=== PATIENT | female | born 1955 | race Caucasian/White ===

== ENCOUNTER 2016-11-09 07:32 | Emergency (ER) | payer MEDICAID, OTHER ==
[2016-11-09 07:40] VITALS: BP 145/73; PULSE 74; RESP 20; TEMP 98.2
--- NOTE | 2016-11-09 08:34 | ED ---
General Adult HPI - General Chief complaint: Needlestick/Exposure Stated complaint: NEEDLE STICK Time Seen by Provider: 11/09/16 08:17 Source: patient, RN notes reviewed Mode of arrival: ambulatory Limitations: no limitations - History of Present Illness Initial comments: Kimberly is a 61-year-old female who presents emergency room today with a chief complaint possible needle stick. She does work as a nurse up on the preop floor. States she was trying to pull up the cover for the insulin needle was accidentally grazed the left index finger. She states it scratched through the colon. No bleeding. States to clean the wound. States she was unsure if it penetrated. Denies any other complaints or symptoms. Patient denies any recent fever, chills, shortness of breath, chest pain, back pain, abdominal pain, nausea or vomiting, numbness or tingling, dysuria or hematuria, constipation or diarrhea, headaches or visual changes, or any other complaints. - Related Data Home Medications Medication Instructions Recorded Confirmed Omeprazole [PriLOSEC] 20 mg PO DAILY 02/10/14 11/09/16 Calcium Chew 1 tab PO BID 04/02/16 11/09/16 ALPRAZolam [Alprazolam] 0.125 mg PO DAILY PRN 11/09/16 11/09/16 Hyoscyamine Sulfate [Levsin] 0.125 mg PO DAILY PRN 11/09/16 11/09/16 Allergies Allergy/AdvReac Type Severity Reaction Status Date / Time No Known Allergies Allergy Verified 11/09/16 07:40 Review of Systems ROS Statement: Those systems with pertinent positive or pertinent negative responses have been documented in the HPI. ROS Other: All systems not noted in ROS Statement are negative. Past Medical History Past Medical History: GERD/Reflux, Mitral Valve Prolapse (MVP), Musculoskeletal Disorder Additional Past Medical History / Comment(s): SOMETIMES SPASMS IN ABD. OFF & ON- DR. THINKS COULD BE STRESS RELATED. NUMBNESS IN LEFT LEG DEPENDING ON ACTIVITY History of Any Multi-Drug Resistant Organisms: None Reported Past Surgical History: Section, Cholecystectomy, Tonsillectomy, Uterine Ablation Additional Past Surgical History / Comment(s): HX LOW BACK PAIN-PAIN CLINIC INJECTIONS WITH LEFT HIP/LEG PAIN- LAST INJECTION 02/16/14 Past Anesthesia/Blood Transfusion Reactions: Motion Sickness Additional Past Anesthesia/Blood Transfusion Reaction / Comment(s): PT STATES SENSITIVE TO MEDICATIONS IN ANESTHESIA Past Psychological History: No Psychological Hx Reported Smoking Status: Never smoker Past Alcohol Use History: Occasional Additional Past Alcohol Use History / Comment(s): BEER OR WINE 4 X A WEEK Past Drug Use History: None Reported General Exam - General Exam Comments Initial Comments: General: The patient is awake and alert, in no distress, and does not appear acutely ill. Eye: Pupils are equal, round and reactive to light, extra-ocular movements are intact. No nystagmus. There is normal conjunctiva bilaterally. No signs of icterus. Ears, nose, mouth and throat: There are moist mucous membranes and no oral lesions. Neck: The neck is supple, there is no tenderness or JVD. Cardiovascular: There is a regular rate and rhythm. No murmur, rub or gallop is appreciated. Respiratory: Lungs are clear to auscultation, respirations are non-labored, breath sounds are equal. No wheezes, stridor, rales, or rhonchi. Musculoskeletal: Normal ROM, no tenderness. Strength 5/5. Sensation intact. Pulses equal bilaterally 2+. Neurological: A&O x 3. CN II-XII intact, There are no obvious motor or sensory deficits. Coordination appears grossly intact. Speech is normal. Skin: Skin is warm and dry and no rashes or lesions are noted. Psychiatric: Cooperative, appropriate mood & affect, normal judgment. Limitations: no limitations Course Vital Signs 11/09/16 07:33 Temperature 98.2 F Pulse Rate 74 Respiratory 20 Rate Blood Pressure 145/73 O2 Sat by Pulse 97 Oximetry Medical Decision Making - Medical Decision Making Rapid HIV testing done on source patient negative. The results were updated and told to the patient. Patient advised follow-up with employee health. Disposition Clinical Impression: Needle stick injury Disposition: HOME SELF-CARE Condition: Good Referrals: Bruno Ohara MD [Primary Care Provider] - 1-2 days Time of Disposition: 09:34
== END 2016-11-09 08:38 | disposition home or self-care (01) ==
LOC: EC 07:32
DX: S69.92XA Unspecified injury of left wrist, hand and finger(s), initial encounter (principal); K21.9 Gastro-esophageal reflux disease without esophagitis; Z79.899 Other long term (current) drug therapy; W46.0XXA Contact with hypodermic needle, initial encounter; Y92.69 Other specified industrial and construction area as the place of occurrence of the external cause; Y99.0 Civilian activity done for income or pay
CPT/HCPCS: 99283

== ENCOUNTER → 2016-11-21 | Outpatient (CLI) | payer MEDICAID ==
[2016-11-21 08:51] LABS: CHCM 32.7; HCT 52.9 % (34.0-46.0); HDW 2.44; HGB 17.3 gm/dL (11.4-16.0); MCH 31.1 pg (25.0-35.0); MCHC 32.6 g/dL (31.0-37.0); MCV 95.3 fL (80.0-100.0); Mean Platelet Volume 7.8; RBC 5.55 m/uL (3.80-5.40); RDW 13.2 % (11.5-15.5); WBC 5.1 k/uL (3.8-10.6)
[2016-11-21 09:28] LABS: Cholesterol 216 mg/dL (<200); HDL Cholesterol 100 mg/dL (40-60); Triglycerides 87 mg/dL (<150)
== END | disposition home or self-care (01) ==
LOC: LABWHC1 08:28
PROVIDERS: ATTEND Obstetrics & Gynecology
DX: E78.4 Other hyperlipidemia (principal)
CPT/HCPCS: 36415; 80061; 85027

== ENCOUNTER → 2016-11-22 | Outpatient (CLI) | payer MEDICAID ==
--- NOTE | 2016-11-26 12:51 | MM ---
Reason for exam: screening (asymptomatic). Last mammogram was performed 1 year and 8 months ago. History: Patient is postmenopausal. Family history of breast cancer in aunt at age 80, breast cancer in sister at age 52, and breast cancer in aunt at age 60. Physical Findings: A clinical breast exam by your physician is recommended on an annual basis and results should be correlated with mammographic findings. MG 3D Screening Mammo W/Cad Bilateral CC and MLO view(s) were taken. Prior study comparison: March 28, 2015, bilateral MG screening mammo w CAD. January 21, 2014, bilateral MG screening mammo w CAD. The breast tissue is heterogeneously dense. This may lower the sensitivity of mammography. There is no discrete abnormality. No significant changes when compared with prior studies. ASSESSMENT: Negative, BI-RAD 1 RECOMMENDATION: Routine screening mammogram of both breasts in 1 year.
== END | disposition home or self-care (01) ==
LOC: RADMAMWWP 14:57
PROVIDERS: ATTEND Obstetrics & Gynecology
DX: Z12.31 Encounter for screening mammogram for malignant neoplasm of breast (principal); Z80.3 Family history of malignant neoplasm of breast
CPT/HCPCS: 77063; G0202

== ENCOUNTER → 2017-02-28 | Outpatient (CLI) | payer MEDICAID ==
[2017-02-28 09:02] LABS: CH 30.6; CHCM 33.2; HCT 46.8 % (34.0-46.0); HDW 2.56; HGB 16.2 gm/dL (11.4-16.0); MCH 32.1 pg (25.0-35.0); MCHC 34.6 g/dL (31.0-37.0); MCV 92.7 fL (80.0-100.0); Mean Platelet Volume 6.8; RBC 5.05 m/uL (3.80-5.40); RDW 12.8 % (11.5-15.5); WBC 5.1 k/uL (3.8-10.6)
[2017-02-28 10:33] LABS: ALT 30 U/L (9-52); AST 29 U/L (14-36); Alkaline Phosphatase 83 U/L (38-126); Anion Gap 9 mmol/L; Blood Urea Nitrogen 19 mg/dL (7-17); Calcium 10.1 mg/dL (8.4-10.2); Carbon Dioxide 31 mmol/L (22-30); Chloride 104 mmol/L (98-107); Glucose 91 mg/dL (74-99); Iron 125 ug/dL (37-170); Non-African American GFR(MDRD) 56 (>60 ml/min/1.73 sqM); Potassium 4.2 mmol/L (3.5-5.1); Sodium 144 mmol/L (137-145); Total Bilirubin 0.5 mg/dL (0.2-1.3); Total Protein 7.3 g/dL (6.3-8.2)
[2017-02-28 10:43] LABS: % Iron Saturation 37.1 % (20-50); Total Iron Binding Capacity 337 ug/dL (265-497)
== END | disposition home or self-care (01) ==
LOC: LABWHC1 08:28
PROVIDERS: ATTEND Family Medicine
DX: D58.2 Other hemoglobinopathies (principal)
CPT/HCPCS: 36415; 80053; 82728; 83540; 83550; 85027

== ENCOUNTER → 2018-01-29 | Outpatient (CLI) | payer MEDICAID ==
--- NOTE | 2018-01-29 14:15 | ECHOF ---
Referral Reason:I34.1 Mitral valve prolapse. MEASUREMENTS -------- HEIGHT: 162.6 cm WEIGHT: 55.3 kg BP: IVSd: 1.0 cm (0.6 - 1.1) LVIDd: 3.8 cm (3.9 - 5.3) LVPWd: 1.1 cm (0.6 - 1.1) IVSs: 1.0 cm LVIDs: 2.9 cm LVPWs: 1.2 cm LA Diam: 2.6 cm (2.7 - 3.8) LAESV Index (A-L): 27.85 ml/m Ao Diam: 2.8 cm (2.0 - 3.7) AV Cusp: 1.7 cm (1.5 - 2.6) LA Diam: 2.5 cm (2.7 - 3.8) MV EXCURSION: 13.254 mm (> 18.000) MV EF SLOPE: 62 mm/s (70 - 150) EPSS: 0.3 cm MV E Preston: 0.49 m/s MV DecT: 307 ms MV A Preston: 0.78 m/s MV E/A Ratio: 0.63 RAP: 5.00 mmHg RVSP: 25.12 mmHg FINDINGS -------- Sinus rhythm. This was a technically good study. LV size, wall thickness and systolic function are normal, with an EF greater than 55%. The left diego tricular size is normal. The right ventricle is normal in size. The left atrial size is normal. The right atrial size is normal. The aortic valve is trileaflet, and appears structurally normal. No aortic stenosis or regurgitation. The mitral valve leaflets are mildly thickened. Moderate mitral regurgitation is present. Mild pr olapse of the posterior mitral valve leaflet. Mild tricuspid regurgitation present. There is no evidence of pulmonary hypertension. The right v entricular systolic pressure, as measured by Doppler, is 25.12mmHg. There is no pulmonic regurgitation present. The aortic root size is normal. There is no pericardial effusion. CONCLUSIONS -------- 1. Sinus rhythm. 2. This was a technically good study. 3. LV size, wall thickness and systolic function are normal, with an EF greater than 55%. 4. The left ventricular size is normal. 5. The left atrial size is normal. 6. The aortic valve is trileaflet, and appears structurally normal. No aortic stenosis or regurgitati on. 7. Moderate mitral regurgitation is present. 8. Mild prolapse of the posterior mitral valve leaflet. 9. Mild tricuspid regurgitation present. 10. There is no evidence of pulmonary hypertension. 11. There is no pulmonic regurgitation present. 12. The aortic root size is normal. 13. There is no pericardial effusion. TRANSIT SPECIALIST: Amanda Nichols RDCS
== END | disposition home or self-care (01) ==
LOC: RADECHMAIN 08:32
PROVIDERS: ATTEND Internal Medicine Interventional Cardiology
DX: I08.1 Rheumatic disorders of both mitral and tricuspid valves (principal)
CPT/HCPCS: 93306

== ENCOUNTER → 2018-01-29 | Outpatient (CLI) | payer MEDICAID ==
--- NOTE | 2018-01-29 11:29 | BD ---
EXAMINATION TYPE: Axial Bone Density DATE OF EXAM: 01/29/2018 COMPARISON: 03/28/2015 CLINICAL HISTORY: M89.9 disorder Height: 64.5 IN Weight: 125 LBS FRAX RISK QUESTIONS: Family History (Parent hip fracture): YES MOTHER RISK FACTORS HISTORY OF: Family History of Osteoporosis: YES MOTHER Active: YES Postmenopausal woman: AGE 48 MEDICATIONS: Additional Medications: VITAMIN D, OMEPRAZOLE, BENEDRYL, EXAM MEASUREMENTS: Bone mineral densitometry was performed using the [employer] system System. Bone mineral density as measured about the Lumbar spine is: ----- L1-L4(G/cm2): 1.055 T Score Values are as follows: ----- L2: -1.1 ----- L3: -0.8 ----- L4: -0.8 ----- L1-L4: -1.0 Bone mineral density has: Decreased -2.4% since study of: 03/28/2015 Bone mineral density about the R hip (g/cm2): 0.821 Bone mineral density about the L hip (g/cm2): 0.807 T Score values are as follows: -----R Neck: -1.6 -----L Neck: -1.7 -----R Total: -1.7 -----L Total: -1.8 Bone mineral density has: Increased 1.0% since study of: 03/28/2015 IMPRESSION: Osteopenia with increased fracture risk. NOTE: T-SCORE=SD OF THE YOUNG ADULT MEAN.
--- NOTE | 2018-01-30 13:54 | MM ---
Reason for exam: screening (asymptomatic). Last mammogram was performed 1 year and 2 months ago. History: Patient is postmenopausal. Family history of breast cancer in aunt at age 80, breast cancer in sister at age 52, and breast cancer in aunt at age 60. Physical Findings: A clinical breast exam by your physician is recommended on an annual basis and results should be correlated with mammographic findings. MG 3D Screening Mammo W/Cad Bilateral CC and MLO view(s) were taken. Prior study comparison: November 22, 2016, bilateral MG 3d screening mammo w/cad. March 28, 2015, bilateral MG screening mammo w CAD. The breast tissue is heterogeneously dense. This may lower the sensitivity of mammography. Stable benign calcifications. There is no discrete abnormality. No significant changes when compared with prior studies. ASSESSMENT: Benign, BI-RAD 2 RECOMMENDATION: Routine screening mammogram of both breasts in 1 year.
== END | disposition home or self-care (01) ==
LOC: RADMAMWWP 07:21
PROVIDERS: ATTEND Obstetrics & Gynecology
DX: Z12.31 Encounter for screening mammogram for malignant neoplasm of breast (principal); Z13.820 Encounter for screening for osteoporosis; M85.80 Other specified disorders of bone density and structure, unspecified site
CPT/HCPCS: 77063; 77067; 77080

== ENCOUNTER → 2018-04-29 | Outpatient (CLI) | payer MEDICAID ==
[2018-04-29 16:17] LABS: HCT 46.9 % (34.0-46.0); HGB 14.9 gm/dL (11.4-16.0); MCH 30.2 pg (25.0-35.0); MCHC 31.8 g/dL (31.0-37.0); MCV 94.9 fL (80.0-100.0); Mean Platelet Volume 7.2; Platelet Count 258 k/uL (150-450); RBC 4.94 m/uL (3.80-5.40); RDW 13.2 % (11.5-15.5); WBC 6.1 k/uL (3.8-10.6)
[2018-04-29 16:30] LABS: ALT 30 U/L (9-52); AST 28 U/L (14-36); Albumin 4.2 g/dL (3.5-5.0); Alkaline Phosphatase 74 U/L (38-126); Anion Gap 5 mmol/L; Blood Urea Nitrogen 23 mg/dL (7-17); Calcium 9.3 mg/dL (8.4-10.2); Carbon Dioxide 30 mmol/L (22-30); Chloride 105 mmol/L (98-107); Glucose 84 mg/dL (74-99); Potassium 4.3 mmol/L (3.5-5.1); Sodium 140 mmol/L (137-145); Total Bilirubin 0.3 mg/dL (0.2-1.3); Total Protein 6.7 g/dL (6.3-8.2)
== END | disposition home or self-care (01) ==
LOC: LABWHC1 15:50
PROVIDERS: ATTEND Family Medicine
DX: D58.2 Other hemoglobinopathies (principal)
CPT/HCPCS: 36415; 80053; 85027

== ENCOUNTER → 2019-01-22 | Outpatient (CLI) | payer MEDICAID ==
[2019-01-22 08:42] LABS: HCT 50.2 % (34.0-46.0); MCH 29.9 pg (25.0-35.0); MCHC 31.9 g/dL (31.0-37.0); MCV 93.9 fL (80.0-100.0); Mean Platelet Volume 7.5; Platelet Count 302 k/uL (150-450); RBC 5.34 m/uL (3.80-5.40); RDW 14.5 % (11.5-15.5); WBC 7.4 k/uL (3.8-10.6)
[2019-01-22 08:54] LABS: Appearance,Urine Clear (Clear); Bilirubin,Urine Negative (Negative); Blood,Urine Small (Negative); Color,Urine Yellow; Glucose,Urine (UA) Negative (Negative); Ketones,Urine Negative (Negative); Leukocyte Esterase,Urine Moderate (Negative); Mucus,Urine Rare /hpf; Nitrite,Urine Negative (Negative); PH, Urine 5.5 (5.0-8.0); Protein,Urine Negative (Negative); RBC,Urine 2 /hpf (0-5); Specific Gravity,Urine 1.025 (1.001-1.035); Squamous Epithelial Cell,Urine 1 /hpf (0-4); Urobilinogen,Urine <2.0 mg/dL (<2.0); WBC,Urine <1 /hpf (0-5)
[2019-01-22 16:27] LABS: Albumin 4.4 g/dL (3.80-4.90); Albumin/Globulin Ratio 2.32 (1.60-3.17); Anion Gap 8.2 mmol/L (4.00-12.00); Calcium 9.6 mg/dL (8.7-10.3); Carbon Dioxide 27.8 mmol/L (21.6-31.8); Globulin 1.9 g/dL (1.6-3.3); LDL Cholesterol,Calculated 125.8 mg/dL (0.0-131.0); Potassium 4.6 mmol/L (3.5-5.5); Total Bilirubin 0.7 mg/dL (0.2-1.2); Total Protein 6.3 g/dL (6.2-8.2); VLDL Calculation 17.2 mg/dL (5.00-40.00)
== END | disposition home or self-care (01) ==
LOC: LABWHC1 08:23
PROVIDERS: ATTEND Family Medicine
DX: Z00.00 Encounter for general adult medical examination without abnormal findings (principal); Z13.9 Encounter for screening, unspecified
CPT/HCPCS: 36415; 80053; 80061; 81001; 85027; 86803

== ENCOUNTER → 2019-04-17 | Outpatient (CLI) | payer MEDICAID ==
--- NOTE | 2019-04-21 10:50 | MM ---
Reason for exam: screening (asymptomatic). Last mammogram was performed 1 year and 3 months ago. History: Patient is postmenopausal. Family history of breast cancer in aunt at age 80, breast cancer in sister at age 52, and breast cancer in aunt at age 60. MG 3D Screening Mammo W/Cad Bilateral CC and MLO view(s) were taken. Prior study comparison: January 29, 2018, bilateral MG 3d screening mammo w/cad. November 22, 2016, bilateral MG 3d screening mammo w/cad. The breast tissue is heterogeneously dense. This may lower the sensitivity of mammography. No significant new finding when compared with prior studies. ASSESSMENT: Benign, BI-RAD 2 RECOMMENDATION: Routine screening mammogram of both breasts in 1 year.
== END | disposition home or self-care (01) ==
LOC: RADMAMWWP 13:25
PROVIDERS: ATTEND Family Medicine
DX: Z12.31 Encounter for screening mammogram for malignant neoplasm of breast (principal); Z80.3 Family history of malignant neoplasm of breast
CPT/HCPCS: 77063; 77067

== ENCOUNTER → 2019-04-24 | Outpatient (CLI) | payer MEDICAID ==
--- NOTE | 2019-04-24 20:25 | US ---
EXAMINATION TYPE: US transvaginal DATE OF EXAM: 04/24/2019 COMPARISON: NONE CLINICAL HISTORY: 63-year-old female post menopausal bleeding N95.0. Meat Lugger reports that the pat ient has had a prior ablation and history of 3 C-sections. TECHNIQUE: Transvaginal sonographic images of the pelvis were acquired. FINDINGS: EXAM MEASUREMENTS: Uterus: 5.5 x 2.5 x 3.7cm Endometrial Stripe: 0.4 cm Right Ovary: obscured by overlying bowel vs atrophy Left Ovary: obscured by overlying bowel vs atrophy 1. Uterus: Anteverted with heterogeneous myometrium. 2. Endometrium: ill defined, difficult to visualize, likely in keeping with history of prior ablatio n. 3. Right Ovary: obscured by overlying bowel vs atrophy 4. Left Ovary: obscured by overlying bowel vs atrophy 5. Bilateral Adnexa: prominent vascularity 6. Posterior cul-de-sac: wnl IMPRESSION: 1. Endometrial stripe estimated at 4 mm. It is ill-defined and difficult to delineate probably in roberto ping with history of prior ablation. If further assessment of the junctional anatomy is desired, fema le pelvic MRI can be considered. 2. Neither ovary could be visualized. 3. Prominent bilateral adnexal vascularity. This is nonspecific but can be seen in the setting of pel colby congestion syndrome.
== END | disposition home or self-care (01) ==
LOC: RADUSWWP 14:54
PROVIDERS: ATTEND Obstetrics & Gynecology
DX: N94.89 Other specified conditions associated with female genital organs and menstrual cycle (principal)
CPT/HCPCS: 76830

== ENCOUNTER → 2020-09-13 | Outpatient (CLI) | payer BC ==
[2020-09-13 10:14] LABS: HCT 49.5 % (34.0-46.0); HGB 16.9 gm/dL (11.4-16.0); MCH 31.5 pg (25.0-35.0); MCHC 34.1 g/dL (31.0-37.0); MCV 92.3 fL (80.0-100.0); Mean Platelet Volume 7.1; Platelet Count 283 k/uL (150-450); RBC 5.36 m/uL (3.80-5.40); RDW 12.5 % (11.5-15.5); WBC 4.4 k/uL (3.8-10.6)
[2020-09-13 14:49] LABS: African American GFR (CKD) 60.6 (60.0-200.0); Albumin 4.5 g/dL (3.80-4.90); Albumin/Globulin Ratio 2.25 (1.60-3.17); Anion Gap 7.9 mmol/L (4.00-12.00); BUN/Creat Ratio 19.09 Ratio (12.00-20.00); Calcium 9.8 mg/dL (8.7-10.3); Carbon Dioxide 28.1 mmol/L (21.6-31.8); Chol/HDL Ratio 2.73; Non-African American GFR(CKD) 52.3 (60.0-200.0); Potassium 4.7 mmol/L (3.5-5.5); Total Bilirubin 0.7 mg/dL (0.2-1.2); Total Protein 6.5 g/dL (6.2-8.2)
== END | disposition home or self-care (01) ==
LOC: LABWHC1 09:11
PROVIDERS: ATTEND Family Medicine
DX: Z00.01 Encounter for general adult medical examination with abnormal findings (principal)
CPT/HCPCS: 36415; 80053; 80061; 85027

== ENCOUNTER → 2020-10-25 | Outpatient (CLI) | payer MEDICARE ==
--- NOTE | 2020-10-25 17:24 | US ---
EXAMINATION TYPE: US renal artery duplex complet DATE OF EXAM: 10/25/2020 COMPARISON: NONE CLINICAL HISTORY: I10 Hypertension. Pt states recent increase in blood pressure MEASUREMENTS: RENAL SIZE: Rt Kidney: 9.2 x 3.7 x 4.1 cm Lt Kidney: 10.2 x 4.6 x 4.4 cm RESISTANCE INDEX Right: 0.6 Left: 0.7 RA/AO RATIO (< 3.5 ) Right: 3.3 Left: 1.6 RA VELOCITY ( < 180 cm/s) Right: 293.4 Left: 140.9 Elevated velocities within right renal artery Two hyperechoic lesions within right liver 1)= 2.1 x 2.1 cm/ 2)=2.8 x 2.1 cm . These could be heman giomas. This could be further evaluated with CT with contrast. IMPRESSION: 1. Elevated right renal artery velocity. Some distal arterial stenosis may be present. 2. Incidental note made of suspected hemangioma within the liver. Additional workup with contrast CT abdomen is recommended.
== END | disposition home or self-care (01) ==
LOC: RADUSWWP 08:03
PROVIDERS: ATTEND Family Medicine
DX: I77.89 Other specified disorders of arteries and arterioles (principal); I10 Essential (primary) hypertension
CPT/HCPCS: 93975

== ENCOUNTER → 2020-11-04 | Outpatient (CLI) | payer MEDICARE ==
[2020-11-04 08:16] LABS: Basophils # (A) 0.1 k/uL (0-0.2); Basophils % (A) 2 %; Eosinophils # (A) 0.2 k/uL (0-0.7); Eosinophils % (A) 4 %; HCT 50.3 % (34.0-46.0); Lymphocytes % (A) 38 %; MCH 31.5 pg (25.0-35.0); MCHC 33.8 g/dL (31.0-37.0); Mean Platelet Volume 7.3; Monocytes # (A) 0.3 k/uL (0-1.0); Monocytes % (A) 5 %; Neutrophils # (A) 2.6 k/uL (1.3-7.7); Neutrophils % (A) 50 %; Platelet Count 301 k/uL (150-450); RBC 5.41 m/uL (3.80-5.40); RDW 12.9 % (11.5-15.5); WBC 5.2 k/uL (3.8-10.6)
[2020-11-04 08:28] LABS: Albumin 4.4 g/dL (3.5-5.0); Calcium 9.6 mg/dL (8.4-10.2); Potassium 4.4 mmol/L (3.5-5.1); Total Bilirubin 0.5 mg/dL (0.2-1.3); Total Protein 7.2 g/dL (6.3-8.2)
--- NOTE | 2020-11-04 09:09 | CT ---
EXAMINATION TYPE: CT abdomen wo/w con DATE OF EXAM: 11/04/2020 HISTORY: Hemangioma of intra abdominal structures CT DLP: 768mGycm Automated Exposure Control for Dose Reduction was Utilized. CONTRAST: CT scan of the abdomen is performed with oral and without and with IV Contrast, patient injected with 80 mL of Isovue 300. Liver mass protocol. COMPARISON: Ultrasound renal artery duplex October 25, 2020. MRI lumbar spine February 10, 2015 FINDINGS: LUNG BASES: No significant abnormality is appreciated. LIVER/GB: Liver measures upper limits of normal in size. There are multiple subcentimeter hypodense l esions scattered throughout the liver parenchyma superiorly and inferiorly involving right hepatic lo bes. Findings too small to further characterize favor benign etiology. There are 2 larger heterogeneo us slightly hypodense lesions adjacent to each other measuring roughly 2.0 to 2.5 cm in size on nonco ntrast CT axial November 19. The lesions corresponds to the lesions seen on recent ultrasound. There is vague T2 hyperintense lesion partially imaged on axial image 30 in retrospect on 2014 MRI. Dynamic po stcontrast imaging shows more ill definition of these lesions with poor visualization on 10 minute de layed phase images. Suspect there is heterogeneous enhancement with progressive central filling, it i s less prominent than typically visualized. Findings suggest hemangiomas especially given the ultraso und appearance of hyperechoic masses. There is no intrahepatic or extrahepatic biliary dilatation. Ch olecystectomy clips are redemonstrated. PANCREAS: No significant abnormality is seen. SPLEEN: No significant abnormality is seen. ADRENALS: No significant abnormality is seen. KIDNEYS: No significant abnormality is seen. BOWEL: Oral contrast is not reached colonic level. No suspicious small or large bowel dilatation LYMPH NODES: No greater than 1cm abdominal lymph nodes are appreciated. OSSEOUS STRUCTURES: Disc calcification at the L1-L2 level. OTHER: No significant additional abnormality is seen. IMPRESSION: CT findings most likely reflect 2 hemangiomas measuring between 2.0 and 2.5 cm in size. 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
== END | disposition home or self-care (01) ==
LOC: RADCTMAIN 07:38
PROVIDERS: ATTEND Family Medicine
DX: D18.03 Hemangioma of intra-abdominal structures (principal); I10 Essential (primary) hypertension
CPT/HCPCS: 80053; 84443; 85025; 74170; 36415; Q9967

== ENCOUNTER → 2020-11-22 | Outpatient (CLI) | payer MEDICAID, MEDICARE ==
--- NOTE | 2020-11-22 16:47 | BD ---
EXAMINATION TYPE: Axial Bone Density DATE OF EXAM: 11/22/2020 COMPARISON: 01/29/2018 CLINICAL HISTORY: Postmenopausal screening Height: 64 IN Weight: 125 LBS FRAX RISK QUESTIONS: Family History (Parent hip fracture): YES MOTHER RISK FACTORS HISTORY OF: Family History of Osteoporosis: YES MOTHER Active: YES Postmenopausal woman: AGE 48 MEDICATIONS: Additional Medications: NORVASC, OMEPRAZOLE, LEVSIN, BENADRYL, EXAM MEASUREMENTS: Bone mineral densitometry was performed using the [employer] System. Bone mineral density as measured about the Lumbar spine is: ----- L1-L4(G/cm2): 1.056 T Score Values are as follows: ----- L2: -1.2 ----- L3: -0.6 ----- L4: -0.9 ----- L1-L4: -1.0 Bone mineral density has: Increased 0.3% since study of: 01/29/2018 Bone mineral density about the R hip (g/cm2): 0.780 Bone mineral density about the L hip (g/cm2): 0.780 T Score values are as follows: -----R Neck: -1.9 -----L Neck: -1.9 -----R Total: -2.0 -----L Total: -2.1 Bone mineral density has: Decreased -5.0% since study of: 01/29/2018 IMPRESSION: Osteopenia (T Score between -2.5 and -1). There is slightly increased risk of fracture and the patient may be considered for treatment. Re-Screen 2-5 years. NOTE: T-SCORE=SD OF THE YOUNG ADULT MEAN.
== END | disposition home or self-care (01) ==
LOC: RADBDWWP 08:41
PROVIDERS: ATTEND Family Medicine
DX: M85.80 Other specified disorders of bone density and structure, unspecified site (principal)
CPT/HCPCS: 77080

== ENCOUNTER → 2021-01-05 | Outpatient (CLI) | payer MEDICARE ==
--- NOTE | 2021-01-06 13:19 | MM ---
Reason for exam: screening (asymptomatic). Last mammogram was performed 1 year and 9 months ago. History: Patient is postmenopausal. Family history of breast cancer in aunt at age 80, breast cancer in sister at age 52, and breast cancer in aunt at age 60. Physical Findings: A clinical breast exam by your physician is recommended on an annual basis and results should be correlated with mammographic findings. MG 3D Screening Mammo W/Cad Bilateral CC and MLO view(s) were taken. Prior study comparison: April 17, 2019, bilateral MG 3d screening mammo w/cad. January 29, 2018, bilateral MG 3d screening mammo w/cad. There are scattered fibroglandular densities. There is no discrete abnormality. No significant changes when compared with prior studies. ASSESSMENT: Negative, BI-RAD 1 RECOMMENDATION: Routine screening mammogram of both breasts in 1 year.
== END | disposition home or self-care (01) ==
LOC: RADMAMWWP 07:54
PROVIDERS: ATTEND Family Medicine
DX: Z12.31 Encounter for screening mammogram for malignant neoplasm of breast (principal); Z78.0 Asymptomatic menopausal state; Z80.3 Family history of malignant neoplasm of breast
CPT/HCPCS: 77063; 77067

== ENCOUNTER 2021-09-01 06:53 | Day surgery (SDC) | payer MEDICARE ==
[2021-08-30 08:59] VITALS: BMI 20.5
[~2021-09-01 06:53] MED LIST: LACTATED RINGERS 1,000 ML IV SCH
[2021-09-01 07:38] VITALS: TEMP 96.9
[2021-09-01] MEDS ORDERED: ONDANSETRON 4 MG/2 ML VIAL ONE (07:53)
[2021-09-01] MEDS ORDERED: ONDANSETRON 4 MG/2 ML VIAL IVP ONE (07:56)
[2021-09-01] MEDS ORDERED: PROPOFOL 10 MG/ML 20 ML VIAL IV ONE (08:42)
[2021-09-01] MEDS ORDERED: LIDOCAINE 1% INJ 10MG/ML (20 ML MDV) ONE (08:42)
--- NOTE | 2021-09-01 09:18 | P.PCN ---
Date of Procedure: 09/01/21 Procedure(s) Performed: Brief history: Patient is a pleasant 66-year-old white female scheduled for an elective upper endoscopy as well as colonoscopy as a part of evaluation of GERD and screening for colon cancer Procedure performed: Esophagogastroduodenoscopy with snare polypectomy, biopsy and argon plasma coagulation Colonoscopy Preoperative diagnosis: GERD Screening for colon cancer Anesthesia: MAC Procedure: After informed consent was obtained from the patient was brought into the endoscopy unit and IV sedation was administered by anesthesia under continuous monitoring. Initially upper endoscopy was done. The Olympus GF 160 video endoscope was inserted inserted into the mouth and esophagus intubated without any difficulty and was gradually advanced into the stomach and duodenum and carefully examined. The bulb of the duodenum appeared normal. In the second part of the duodenum there was a 1.5 cm flat polyp noted which was partially removed by snare polypectomy followed by multiple biopsies and argon plasma coagulation. The scope was then withdrawn into the stomach adequately insufflated with air and upon careful examination the antrum and body, cardia and fundus appeared normal. The scope was then withdrawn into the esophagus. The GE junction was located at 36 cm to the incisors. Small sliding type hiatal hernia. It appeared regular with no erythema erosions or ulcerations. Rest of the esophagus appeared normal. Patient tolerated the procedure well. At this time the patient continued to remain sedation. Initial digital rectal examination was normal. Olympus CF 160 video colonoscope was then inserted into the rectum and gradually advanced to the cecum without any difficulty. Careful examination was performed as the scope was gradually being withdrawn. The prep was excellent. The cecum, ascending colon, transverse colon, descending colon, sigmoid colon and rectum appeared normal. In the sigmoid diverticulosis. Retroflexion was performed in the rectum and no lesions were noted. Patient tolerated the procedure well. Impression: 1. Upper Endoscopy revealed a 1.5 cm flat duodenal polyp in the second part of the duodenum, status post partial snare polypectomy followed by multiple biopsies and argon plasma coagulation 2. Colonoscopy within normal limits with no evidence of colorectal neoplasia. Moderate sigmoid diverticulosis Recommendations: Findings of this examination were discussed with the patient as well as her family. She was advised to follow with the biopsy results and she'll be seen in office in 2 weeks. If the biopsy reveals adenoma she can have a repeat upper endoscopy. She can have a repeat screening colonoscopy in 10 years.
[2021-09-01 09:49] VITALS: BP 153/68; PULSE 64; RESP 20
== END 2021-09-01 10:18 | disposition home or self-care (01) ==
LOC: ORWHC2ENDO 06:53
PROVIDERS: ATTEND Internal Medicine Gastroenterology
DX: D13.2 Benign neoplasm of duodenum (principal); K21.9 Gastro-esophageal reflux disease without esophagitis; K44.9 Diaphragmatic hernia without obstruction or gangrene; Z12.11 Encounter for screening for malignant neoplasm of colon; K57.30 Diverticulosis of large intestine without perforation or abscess without bleeding; I10 Essential (primary) hypertension; I34.1 Nonrheumatic mitral (valve) prolapse; Z79.899 Other long term (current) drug therapy
CPT/HCPCS: 88305; 43251; J2405; J2001; J2704; G0121; 43239; 43270

== ENCOUNTER → 2022-02-22 | Outpatient (CLI) | payer MEDICARE | END | disposition home or self-care (01) | LOC: RADMAMWWP 09:00 | PROVIDERS: ATTEND Obstetrics & Gynecology | DX: Z12.31 Encounter for screening mammogram for malignant neoplasm of breast (principal) | CPT/HCPCS: 77063; 77067 ==

== ENCOUNTER 2022-03-14 09:06 | Day surgery (SDC) | payer MEDICARE ==
[2022-03-14 10:17] VITALS: RESP 16; TEMP 97.3
[2022-03-14] MEDS ORDERED: ONDANSETRON 4 MG/2 ML VIAL ONE (10:19)
[2022-03-14] MEDS ORDERED: PROPOFOL 10 MG/ML 20 ML VIAL IV ONE (11:28)
[2022-03-14] MEDS ORDERED: LIDOCAINE 2% INJ 20 MG/ML (2 ML VIAL) ONE (11:28)
--- NOTE | 2022-03-14 11:39 | P.PCN ---
Date of Procedure: 03/14/22 Procedure(s) Performed: BRIEF HISTORY: Patient is a 66-year-old, pleasant, white female scheduled for an upper endoscopy as a part of evaluation of GERD and follow-up duodenal polyp that was withdrawn and upper endoscopy unit.. PROCEDURE PERFORMED: Esophagogastroduodenoscopy with biopsy. PREOPERATIVE DIAGNOSIS: Follow-up duodenal polyp. IV sedation per anesthesia. PROCEDURE: After informed consent was obtained, the patient was brought into the endoscopy unit. IV sedation was administered by Anesthesia under continuous monitoring. Initially the Olympus GIF-140 video endoscope was inserted into the mouth. Esophagus intubated without any difficulty. It was gradually advanced into the stomach and duodenum and carefully examined. The bulb of the duodenum appeared normal. In the second part of the duodenum there was a 2-3 mm residual polyp noted which was removed by cold biopsy. The scope at this time was withdrawn to the stomach, adequately insufflated with air, and upon careful examination, mucosa of the antrum, body, cardia and the fundus appeared normal. The scope was then withdrawn into the esophagus. The GE junction was located at 39 cm from the incisors. Small hiatal hernia seen. The esophagus appeared normal. There were no erosions or ulcerations seen and the patient tolerated the procedure well. IMPRESSION: 1. 2 mm residual duodenal polyp status post cold biopsy. 2. Small hiatal hernia.. RECOMMENDATIONS: The findings of this examination were discussed with the p atient as well as a family. She was advised to follow with the biopsy results.. We'll plan a repeat upper endoscopy in 1 year.
[2022-03-14 12:11] VITALS: BP 145/67; PULSE 65
== END 2022-03-14 12:36 | disposition home or self-care (01) ==
LOC: ORWHC2ENDO 09:06
PROVIDERS: ATTEND Internal Medicine Gastroenterology
DX: D13.2 Benign neoplasm of duodenum (principal); K44.9 Diaphragmatic hernia without obstruction or gangrene; K21.9 Gastro-esophageal reflux disease without esophagitis; I10 Essential (primary) hypertension; I34.1 Nonrheumatic mitral (valve) prolapse; Z79.899 Other long term (current) drug therapy; Z80.9 Family history of malignant neoplasm, unspecified
CPT/HCPCS: 88305; 43239; J2405; J2704; J2001

== ENCOUNTER → 2022-09-06 | Outpatient (CLI) | payer MEDICARE ==
[2022-09-06 15:21] LABS: HCT 50.4 % (37.2-46.3); HGB 16.1 g/dL (12.0-15.0); MCH 30.1 pg (27.0-32.0); MCHC 31.9 g/dL (32.0-37.0); MCV 94.2 fL (80.0-97.0); Mean Platelet Volume 10.3 fL (9.5-12.2); NRBC Per 100 WBC 0 /100 WBCS (0.0-0.0); Platelet Count 317 X 10*3/uL (140-440); RBC 5.35 X 10*6/uL (4.10-5.20); RDW 13.2 % (11.5-14.5); WBC 5.65 X 10*3/uL (4.50-10.00)
[2022-09-06 16:05] LABS: ALT 21 U/L (8-44); AST 24 U/L (13-35); African American GFR (CKD) 72.3 (60.0-200.0); Albumin 4.7 g/dL (3.8-4.9); Albumin/Globulin Ratio 2.15 (1.60-3.17); Alkaline Phosphatase 81 U/L (41-126); BUN/Creat Ratio 19.81 Ratio (12.00-20.00); Blood Urea Nitrogen 18.6 mg/dL (9.0-27.0); Calcium 9.8 mg/dL (8.7-10.3); Carbon Dioxide 26.1 mmol/L (20.0-27.5); Chloride 104 mmol/L (96-109); Chol/HDL Ratio 2.45 Ratio; Globulin 2.2 g/dL (1.6-3.3); Glucose 106 mg/dL (70-110); LDL Cholesterol,Calculated 118.9 mg/dL (0.0-131.0); Non-African American GFR(CKD) 62.4 (60.0-200.0); Potassium 4.4 mmol/L (3.5-5.5); Sodium 142 mmol/L (135-145); Total Protein 6.9 g/dL (6.2-8.2)
== END | disposition home or self-care (01) ==
LOC: LABWHC1 08:40
PROVIDERS: ATTEND Family Medicine
DX: Z00.01 Encounter for general adult medical examination with abnormal findings (principal); E78.2 Mixed hyperlipidemia; I12.9 Hypertensive chronic kidney disease with stage 1 through stage 4 chronic kidney disease, or unspecified chronic kidney disease; N18.2 Chronic kidney disease, stage 2 (mild)
CPT/HCPCS: 36415; 80053; 80061; 85027

== ENCOUNTER → 2022-09-21 | Outpatient (CLI) | payer MEDICARE ==
[2022-09-21 18:52] LABS: African American GFR (CKD) 61.8 (60.0-200.0); Anion Gap 13.2 mmol/L (10.00-18.00); BUN/Creat Ratio 14.39 Ratio (12.00-20.00); Blood Urea Nitrogen 15.4 mg/dL (9.0-27.0); Calcium 9.8 mg/dL (8.7-10.3); Carbon Dioxide 27.8 mmol/L (20.0-27.5); Non-African American GFR(CKD) 53.3 (60.0-200.0)
== END | disposition home or self-care (01) ==
LOC: LABWHC1 10:09
PROVIDERS: ATTEND Nurse Practitioner Adult Health
DX: I10 Essential (primary) hypertension (principal)
CPT/HCPCS: 36415; 80048

== ENCOUNTER → 2022-11-26 | Outpatient (CLI) | payer MEDICARE ==
--- NOTE | 2022-11-26 15:35 | BD ---
EXAMINATION TYPE: Axial Bone Density DATE OF EXAM: 11/26/2022 CLINICAL HISTORY: 67 years old Female. ICD-10 CODE: M85.88 DISORDER OF BONE DENSITY Height: 64.25" Weight: 122.4 FRAX RISK QUESTIONS: Alcohol (3 or more units per day): No Family History (Parent hip fracture): Yes, Mother fractured both hips and pelvis Glucocorticoids (More than 3mos): No (Ex: prednisone, prednisolone, methylprednisolone, dexamethasone, and hydrocortisone). History of Fracture in Adulthood: Yes, 5th digit unknown foot Secondary Osteoporosis: 1. Type 1 Diabetes: No 2. Hyperthyroidism: No 3. Menopause before 45: No 4. Malnutrition: No 5. Chronic liver disease: No Rheumatoid Arthritis: No Current Tobacco Use: No RISK FACTORS HISTORY OF: Hip Fracture (Right/Left): No Spine Fracture: No History of Wrist Fracture: No Surgery to Spine/Hip(right/left)/Wrist (right/left): No Family History of Osteoporosis: Yes, Mother Active: Yes Diet low in dairy products/other sources of calcium: Yes Postmenopausal woman: Yes Lost more than 2 inches in height since high school: No Frequent falls: No Poor Health: No Hyperparathyroidism: No Adrenal Insufficiency: No MEDICATIONS: Prednisone or other steroids: No Thyroid Medications: No Osteoporosis Medications: No Additional Medications: Two different blood pressure pills, xanax on occasion, omeprazole, muscle rel axer for stomach, magnesium Additional History: None EXAM MEASUREMENTS: Bone mineral densitometry was performed using the [email or web address] System. Bone mineral density as measured about the Lumbar spine is: ----- L1-L4(G/cm2): 1.084 T Score Values are as follows: ----- L1: -1.5 ----- L2: -1.0 ----- L3: -0.4 ----- L4: -0.6 ----- L1-L4: -0.8 Z Score Values are as follows: ----- L1: 0.5 ----- L2: 1.0 ----- L3: 1.5 ----- L4: 1.4 ----- L1-L4: 1.2 Bone mineral density has: Increased 27% since study of: 11/22/2020 Bone mineral density about the R hip (g/cm2): 0.768 Bone mineral density about the L hip (g/cm2): 0.750 T Score values are as follows: -----R Neck: -1.8 -----L Neck: -1.9 -----R Total: -1.9 -----L Total: -2.0 Z Score values are as follows: -----R Neck: -0.0 -----L Neck: -0.1 -----R Total: -0.3 -----L Total: -0.5 Bone mineral density has: Increased 1.6% since study of: 11/22/2020 FRAX%s: The graph provided illustrates a 16.5% chance for a major osteoporotic fx and a 2.9% chance f or the hips probability for fx in 10 years time. IMPRESSION: Osteopenia (T Score between -2.5 and -1). There is slightly increased risk of fracture and the patient may be considered for treatment. Re-Screen 2-5 years. NOTE: T-SCORE=SD OF THE YOUNG ADULT MEAN.
== END | disposition home or self-care (01) ==
LOC: RADBDWWP 07:55
PROVIDERS: ATTEND Obstetrics & Gynecology
DX: M85.89 Other specified disorders of bone density and structure, multiple sites (principal)
CPT/HCPCS: 77080

== ENCOUNTER → 2023-02-27 | Outpatient (CLI) | payer MEDICARE ==
[2023-02-27 16:09] LABS: ALT 21 U/L (8-44); AST 23 U/L (13-35); Albumin 4.3 d/dL (3.8-4.9); Albumin/Globulin Ratio 2.05 Ratio (1.60-3.17); Alkaline Phosphatase 76 U/L (41-126); Calcium 9.7 mg/dL (8.7-10.3); Chloride 104 mmol/L (96-109); Chol/HDL Ratio 2.48 Ratio; Globulin 2.1 d/dL (1.6-3.3); Glucose 102 mg/dL (70-110); LDL Cholesterol,Calculated 108.9 mg/dL (0.0-131.0); Potassium 4.7 mmol/L (3.5-5.5); Sodium 144 mmol/L (135-145); Total Bilirubin 0.3 mg/dL (0.3-1.2); Total Protein 6.4 d/dL (6.2-8.2); VLDL Calculation 14.74 mg/dL (5.00-40.00)
== END | disposition home or self-care (01) ==
LOC: LABWHC1 07:00
PROVIDERS: ATTEND Internal Medicine Interventional Cardiology
DX: I10 Essential (primary) hypertension (principal); E78.2 Mixed hyperlipidemia
CPT/HCPCS: 36415; 80053; 80061

== ENCOUNTER 2023-03-29 04:48 | Emergency (ER) | payer MEDICARE ==
[2023-03-29 04:59] VITALS: BP 116/54; PULSE 74; RESP 18; TEMP 97
[2023-03-29] MEDS ORDERED: HYDROmorphone 1 MG/ML 1 ML SYRINGE IM STA (05:57)
[2023-03-29] MEDS ORDERED: methylPREDNISolone SOD SUCCI 125 MG/2 ML VIAL IM ONE (05:57)
--- NOTE | 2023-03-29 06:45 | ED ---
Back Pain HPI - General Chief Complaint: Back Pain/Injury Stated Complaint: Left hip pain Time Seen by Provider: 03/29/23 05:00 Source: family Limitations: no limitations - History of Present Illness Initial Comments: 67-year-old female presents to the emergency department reporting back pain. States that she was working in her backyard when she twisted and felt a pop. She has pain in her lower back which is radiating down her left leg. Does have a history of herniated disks. States that she received injections approximately 2 years ago and has not had any issues since. She denies any saddle anesthesia. No bowel or bladder incontinence. No history of cancer. No weakness in her extremities. No other alleviating, precipitating or modifying factors - Related Data Home Medications Medication Instructions Recorded Confirmed Omeprazole [PriLOSEC] 20 mg PO DAILY PRN 02/10/14 03/22/23 Calcium Chew 1 tab PO BID 04/02/16 03/22/23 ALPRAZolam [Alprazolam] 0.25 mg PO DAILY PRN 11/09/16 03/22/23 Hyoscyamine Sulfate [Levsin] 0.125 mg PO DAILY PRN 11/09/16 03/22/23 amLODIPine BESYLATE 5 mg PO QAM 08/30/21 03/22/23 Magnesium 200 mg PO HS 03/14/22 03/22/23 Ibuprofen [Motrin Ib] 600 mg PO DIRECTED PRN 03/22/23 03/22/23 hydroCHLOROthiazide 25 mg PO DAILY 03/22/23 03/22/23 Previous Rx's Medication Instructions Recorded HYDROcodone/APAP 7.5-325MG [Newcomb 1 tab PO Q4HR PRN 3 Days #18 tab 03/29/23 7.5-325] predniSONE [Deltasone] 20 mg PO BID #10 tab 03/29/23 Allergies Allergy/AdvReac Type Severity Reaction Status Date / Time No Known Allergies Allergy Verified 03/29/23 04:59 Review of Systems ROS Statement: Those systems with pertinent positive or pertinent negative responses have been documented in the HPI. ROS Other: All systems not noted in ROS Statement are negative. Past Medical History Past Medical History: GERD/Reflux, Hypertension, Mitral Valve Prolapse (MVP) Additional Past Medical History / Comment(s): SPASMS IN ABD. OFF & ON. Hx. of herniated disc. COVID 08/2021. hx of polyps in esophagus. History of Any Multi-Drug Resistant Organisms: None Reported Past Surgical History: Section, Cholecystectomy, Tonsillectomy, Uterine Ablation Additional Past Surgical History / Comment(s): HX LOW BACK PAIN-PAIN CLINIC INJECTIONS WITH LEFT HIP/LEG PAIN. Vein stripping.. colonoscopy, egd - pre cancerous polyp removed Past Anesthesia/Blood Transfusion Reactions: Postoperative Nausea & Vomiting (PONV) Additional Past Anesthesia/Blood Transfusion Reaction / Comment(s): States is sensitive to anesthesia.. Past Psychological History: Anxiety Smoking Status: Never smoker Past Alcohol Use History: Daily Past Drug Use History: None Reported - Past Family History Mother Family Medical History: No Reported History Sister(s) Family Medical History: Cancer Additional Family Medical History / Comment(s): breast Father Family Medical History: Cancer Brother(s) Family Medical History: Cancer General Exam Limitations: no limitations General appearance: alert, in distress Neck exam: Present: normal inspection. Absent: tenderness, meningismus, lymphadenopathy Respiratory exam: Present: normal lung sounds bilaterally Cardiovascular Exam: Present: regular rate, normal rhythm, normal heart sounds. Absent: systolic murmur, diastolic murmur, rubs, gallop, clicks GI/Abdominal exam: Present: soft, normal bowel sounds. Absent: distended, tenderness, guarding, rebound, rigid Extremities exam: Present: normal inspection, full ROM, normal capillary refill. Absent: tenderness, pedal edema, joint swelling, calf tenderness Back exam: Present: normal inspection, other (Patient has no palpable pain. No step-offs) Neurological exam: Present: alert, oriented X3, CN II-XII intact Skin exam: Present: warm, dry, intact, normal color. Absent: rash Course Vital Signs 03/29/23 04:56 Temperature 97 F L Pulse Rate 74 Respiratory 18 Rate Blood Pressure 116/54 O2 Sat by Pulse 100 Oximetry Medical Decision Making - Medical Decision Making Was pt. sent in by a medical professional or institution (, PA, EXPORT SPECIALIST, urgent care, hospital, or intermediate...) When possible be specific @ -No Did you speak to anyone other than the patient for history (EMS, parent, family, police, friend...)? What history was obtained from this source @ -No Did you review nursing and triage notes (agree or disagree)? Why? @ -I reviewed and agree with nursing and triage notes Were old charts reviewed (outside hosp., previous admission, EMS record, old EKG, old radiological studies, urgent care reports/EKG's, intermediate records)? Report findings @ -No old charts were reviewed Differential Diagnosis (chest pain, altered mental status, abdominal pain women, abdominal pain men, vaginal bleeding, weakness, fever, dyspnea, syncope, headache, dizziness, GI bleed, back pain, seizure, CVA, palpatations, mental health, musculoskeletal)? @ -Differential Back Pain: Strain, zoster, cauda equina syndrome, epidural abscess, vertebral osteom yelitis, discitis, fracture, subluxation, disc herniation, DJD, spinal stenosis, dissection, AAA, pancreatitis, peptic ulcer disease, pyelonephritis, kidney stone, this is not meant to be an all-inclusive list. EKG interpreted by me (3pts min.). @ -Not completed X-rays interpreted by me (1pt min.). @ -None done CT interpreted by me (1pt min.). @ -None done U/S interpreted by me (1pt. min.). @ -None done What testing was considered but not performed or refused? (CT, X-rays, U/S, labs)? Why? @ -X-ray however patient has not had any traumatic injury What meds were considered but not given or refused? Why? @ -None Did you discuss the management of the patient with other professionals (professionals i.e. , PA, EXPORT SPECIALIST, lab, RT, psych nurse, psychotherapist social worker, workers compensation defense attorney, teacher, safety security officer, disease case manager rn)? Give summary @ -No Was smoking cessation discussed for >3mins.? @ -No Was critical care preformed (if so, how long)? @ -No Were there social determinants of health that impacted care today? How? (Homelessness, low income, unemployed, alcoholism, drug addiction, transportation, low edu. Level, literacy, decrease access to med. care, snf, rehab)? @ -No Was there de-escalation of care discussed even if they declined (Discuss DNR or withdrawal of care, Hospice)? DNR status @ -No What co-morbidities impacted this encounter? (DM, HTN, Smoking, COPD, CAD, C ancer, CVA, ARF, Chemo, Hep., AIDS, mental health diagnosis, sleep apnea, morbid obesity)? @ -Herniated lumbar disks Was patient admitted / discharged? Hospital course, mention meds given and route, prescriptions, significant lab abnormalities, going to OR and other pertinent info. @ -Upon arrival patient is placed into room 15. She is visibly uncomfortable. She is given 1 mg of Dilaudid IM and 125 mg of Solu-Medrol. Patient does have remarkable improvement in her symptoms and feels comfortable going home at this time. She will be placed on a course of steroids and pain medications now patient satting. Follow-up with her primary care doctor for further evaluation and return for any new or worsening symptoms. Patient was agreeable to this and she was discharged in stable condition Undiagnosed new problem with uncertain prognosis? @ -No Drug Therapy requiring intensive monitoring for toxicity (Heparin, Nitro, Insulin, Cardizem)? @ -No Were any procedures done? @ -No Diagnosis/symptom? @ -Acute lumbar radiculopathy Acute, or Chronic, or Acute on Chronic? @ -Acute Uncomplicated (without systemic symptoms) or Complicated (systemic symptoms)? @ -Complicated Side effects of treatment? @ -No Exacerbation, Progression, or Severe Exacerbation? @ -No Poses a threat to life or bodily function? How? (Chest pain, USA, VT, pneumonia, PE, COPD, DKA, ARF, appy, cholecystitis, CVA, Diverticulitis, Homicidal, Suicidal, threat to staff... and all critical care pts) @ -No Disposition Clinical Impression: Lumbar radiculopathy Disposition: HOME SELF-CARE Condition: Stable Instructions (If sedation given, give patient instructions): Acute Low Back Pain (ED) Additional Instructions: Please take the pain medications and steroids as directed. Follow up with your doctor. You may need further imaging should your pain continue. Return for any new or worsening symptoms Prescriptions: predniSONE [Deltasone] 20 mg PO BID #10 tab HYDROcodone/APAP 7.5-325MG [[place]comb 7.5-325] 1 tab PO Q4HR PRN 3 Days #18 tab PRN Reason: Pain Is patient prescribed a controlled substance at d/c from ED?: Yes When asked, does pt state using other controlled substances?: No If prescribed controlled substance>3 days was MAPS reviewed?: Prescribed <3 Days If opioid is for acute pain is fill amount 7 days or less?: Yes Referrals: Bruno Ohara MD [Primary Care Provider] - 1-2 days Time of Disposition: 06:45
[2023-03-29] MEDS ORDERED: ONDANSETRON ODT 4 MG TAB PO STA (06:53)
== END 2023-03-29 07:04 | disposition home or self-care (01) ==
LOC: EC 04:48
DX: M54.16 Radiculopathy, lumbar region (principal); K21.9 Gastro-esophageal reflux disease without esophagitis; I10 Essential (primary) hypertension; F41.9 Anxiety disorder, unspecified; Z86.16 Personal history of COVID-19; Z79.899 Other long term (current) drug therapy
CPT/HCPCS: 99283; 96372 ×2; J2930; J1170

== ENCOUNTER 2023-05-15 11:22 | Day surgery (SDC) | payer MEDICARE ==
[2023-05-04 08:46] LABS: Basophils # (A) 0.1 k/uL (0-0.2); Basophils % (A) 1 %; Eosinophils # (A) 0.3 k/uL (0-0.7); Eosinophils % (A) 5 %; HCT 51.2 % (34.0-46.0); HGB 16.6 gm/dL (11.4-16.0); Lymphocytes % (A) 32 %; MCH 30.5 pg (25.0-35.0); MCHC 32.4 g/dL (31.0-37.0); MCV 94.1 fL (80.0-100.0); Mean Platelet Volume 7.3; Monocytes # (A) 0.3 k/uL (0-1.0); Monocytes % (A) 5 %; Neutrophils # (A) 3.4 k/uL (1.3-7.7); Neutrophils % (A) 54 %; Platelet Count 437 k/uL (150-450); RBC 5.44 m/uL (3.80-5.40); RDW 12.3 % (11.5-15.5); WBC 6.3 k/uL (3.8-10.6)
[2023-05-04 09:23] LABS: African American GFR (CKD) 82 (>60 ml/min/1.73 sqM); Anion Gap 6 mmol/L; Blood Urea Nitrogen 18 mg/dL (7-17); Carbon Dioxide 30 mmol/L (22-30); Chloride 100 mmol/L (98-107); Glucose 107 mg/dL (74-99); Non-African American GFR(CKD) 71 (>60 ml/min/1.73 sqM); Potassium 4.2 mmol/L (3.5-5.1); Sodium 136 mmol/L (137-145)
[2023-05-04 09:30] LABS: Partial Thromboplastin Time 29.4 sec (22.0-30.0); Prothrombin Time 10.8 sec (9.0-12.0)
[2023-05-04 10:50] LABS: Appearance,Urine Clear (Clear); Bacteria,Urine Rare /hpf; Bilirubin,Urine Negative (Negative); Blood,Urine Negative (Negative); Color,Urine Colorless; Glucose,Urine (UA) Negative (Negative); Ketones,Urine Negative (Negative); Leukocyte Esterase,Urine Large (Negative); Mucus,Urine Rare /hpf; Nitrite,Urine Negative (Negative); Protein,Urine Negative (Negative); RBC,Urine 1 /hpf (0-5); Specific Gravity,Urine 1.013 (1.001-1.035); Squamous Epithelial Cell,Urine 1 /hpf (0-4); Urobilinogen,Urine <2.0 mg/dL (<2.0); WBC,Urine 99 /hpf (0-5)
[2023-05-10 17:33] VITALS: BMI 20.1
[~2023-05-15 11:22] MED LIST changes: -LACTATED RINGERS 1,000 ML IV SCH; +ceFAZolin 1,000 MG in SODIUM CHLORIDE 0.9% IRRIGATIO 1,000 ML IRRIGATION PRN
[2023-05-15] MEDS ORDERED: LACTATED RINGERS 1,000 ML IV ONE (11:46)
[2023-05-15] MEDS ORDERED: ONDANSETRON 4 MG/2 ML VIAL ONE (12:09)
[2023-05-15] MEDS ORDERED: PROPOFOL 10 MG/ML 20 ML VIAL IV ONE (13:48)
[2023-05-15] MEDS ORDERED: SUCCINYLCHOLINE CHLORIDE 200 MG/10 ML VIAL IV ONE (13:48)
[2023-05-15] MEDS ORDERED: fentaNYL (PF) 50 MCG/ML 2 ML AMP ONE (13:48)
[2023-05-15] MEDS ORDERED: MIDAZOLAM 2 MG/2 ML VIAL ONE (13:48)
[2023-05-15] MEDS ORDERED: LIDOCAINE 2% INJ 20 MG/ML (2 ML VIAL) ONE (13:48)
[2023-05-15] MEDS ORDERED: THROMBIN (BOVINE) 5,000 UNIT VIAL TOPICAL ONE (13:52)
[2023-05-15] MEDS ORDERED: methylPREDNISolone ACETATE 40 MG/ML 1 ML VIAL MISCELLANE ONE (13:52)
[2023-05-15] MEDS ORDERED: GELATIN SPONGE,ABSORB (LARGE) 1 EACH SPONGE TOPICAL ONE (13:52)
[2023-05-15] MEDS ORDERED: LIDOCAINE 0.5%-EPI 1:200,000 50 ML VIAL SQ ONE (13:52)
[2023-05-15] MEDS ORDERED: KETOROLAC 30 MG/ML 1 ML VIAL IVP PRN (15:07)
[2023-05-15] MEDS ORDERED: HYDROmorphone 0.5 MG/0.5 ML SYRINGE IVP PRN (15:07)
[2023-05-15] MEDS ORDERED: CYCLOBENZAPRINE 10 MG TAB PO PRN (15:07)
[2023-05-15] MEDS ORDERED: SENNOSIDES-DOCUSATE SODIUM 1 EACH TAB PO PRN (15:07)
[2023-05-15] MEDS ORDERED: HYDROmorphone 1 MG/ML 1 ML SYRINGE IVP PRN (15:07)
[2023-05-15] MEDS ORDERED: BENZOCAINE/MENTHOL LOZENG 1 EACH LOZENGE MUCOUS MEM PRN (15:07)
[2023-05-15] MEDS ORDERED: traMADol 50 MG TAB PO PRN (15:07)
[2023-05-15] MEDS ORDERED: HYDROcodone/APAP 5-325MG 1 EACH TAB PO PRN (15:07)
--- NOTE | 2023-05-15 15:12 | P.OP ---
Date of Procedure: 05/15/23 Preoperative Diagnosis: Herniated nucleus pulposis L2-3, far lateral, left lower extremity radiculopathy with weakness Postoperative Diagnosis: Same Anesthesia: GETA Pathology: none sent Condition: stable Disposition: PACU Description of Procedure: BRIEF OPERATIVE NOTE Preoperative Diagnosis:Herniated nucleus pulposis L2-3, far lateral, left lower extremity radiculopathy with weakness Postoperative Diagnosis:Herniated nucleus pulposis L2-3, far lateral, left lower extremity radiculopathy with weakness Procedure: Laminectomy and decompression L2-3 with partial medial facetectomy and foraminotomy for decompression Discectomy for decompression L2-3 Surgeon: Dr. Waddell Inspector Motor Vehicles: Aidan Serrato is present throughout the entire the case persistence during positioning, dissection, exposure, visualization, and all crucial elements of the case as well as closure. Anesthesia: General anesthesia per Dr. Stiles Estimated blood loss: Approximately 50 mL Complications: None apparent Components implanted: None Disposition: To recovery room in good stable condition. OPERATIVE INDICATIONS The patient has been having issues in their lower back and lower extremities. Over the past couple months she has been having severe pain at her left lower extremity at her thigh and anteriorly along her thigh. She is having some weakness initially as well. She was found have a disc herniation with extruded fragment the far lateral space at L2-3 which correlated well with her lower extremity symptoms. The patient has been through conservative treatment. She continued have radicular symptoms with numbness tingling in her lower extremity correlating with her imaging findings. We discussed various treatment options including surgery, and the patient wishes to proceed with surgery We discussed the risk, patient's alternatives and benefits of surgery including but not limited to, risk of bleeding risk of infection, risk of need for further surgery, risk of decreased, loss of motion, loss of function, nerve damage, paralysis, heart attack, blindness and . OPERATIVE SUMMARY After discussing all the risks, patient alternatives and benefits at length, the patient elected to proceed with surgical intervention, signed informed consent, and presented for their procedure. The patient was seen and examined in the preoperative holding area and the surgical site was marked. The patient was given antibiotics and brought to the operating room. The patient was sedated and intubated by anesthesia in standard fashion. The patient was positioned on to the operating room table in a prone position on the appropriate frame which was well-padded and well molded. We were careful to pad any bony prominences and pressure points. We were careful to maintain the patient's cervical spine and good neutral alignment and position throughout. The patient was prepped and draped in a normal standard fashion. An appropriate timeout and keystone protocol performed. We were able to proceed with the surgery. Fluoroscopy was utilized to establish the appropriate level. The local wound area was infiltrated with local anesthetic at L2-3 on the left. An incision was made at the midline longitudinally over the appropriate levels at L2-3. Dissection was taken down subcutaneously to the level of the fascia which was split midline. Dissection was taken over the lamina. Intraoperative fluoroscopy was taken which showed a marker at the appropriate level at L2-3. With the appropriate level positively confirmed, we were able to proceed with laminectomy. The wound was copiously irrigated and suctioned dry as had been done periodically throughout the case. I performed a laminectomy with a combination of curettes and a high-speed bur and Kerrison rongeurs. A small medial facetectomy was performed again further access. A partial foraminotomy was also performed. Portions of the ligamentum flavum were taken down to expose the dura and traversing nerve root. I was able to mobilize the traversing nerve root and gain access to the disc space. I had to expose the undersurface of the facet joint in order gain access further to the lateral aspect of the disc. Note was made of obvious compression from the disc. Protecting the soft tissue structures, a small annulotomy was established. I was able to perform di scectomy and remove any extruded disc fragments and any loose fragments from within the disc itself. There is some disc desiccation noted. I tried to preserve the disc annulus that appeared stable. There were no further extruded fragments noted. There is no evidence of dural tear or leak. Good hemostasis maintained. The wound was copiously irrigated and suctioned dry. Good decompression and discectomy was noted. We were able to proceed with closure. The fascia was closed for a watertight closure. The subcuticular tissue was closed with absorbable suture. The wound was cleaned and dried and dressed with the appropriate dressing. The drapes were broken down. The patient was gently rolled back onto their hospital bed being careful to maintain their cervical spine and good neutral alignment and position. They were woken up by anesthesia, extubated, and brought to the recovery room in good stable condition. The patient will be admitted to the hospital for observation and for appropriate postoperative care, medical management and monitoring. We will continue to follow them closely about the postoperative course.
--- NOTE | 2023-05-15 15:16 | XR ---
Fluoroscopy INDICATION: Pain FINDINGS: Fluoroscopy time: 3.4 seconds. Total dose area product (DAP) in uGy*m?, mGy*cm? (or similar): 0.4504 Images obtained: 3. IMPRESSION: 1. Documentation of fluoroscopy.
[2023-05-15] MEDS ORDERED: HYDROmorphone 0.5 MG/0.5 ML SYRINGE IVP ONE (15:45)
[2023-05-15] MEDS ORDERED: ONDANSETRON 4 MG/2 ML VIAL IVP ONE (15:45)
--- NOTE | 2023-05-15 18:03 | FL ---
FINDINGS: Fluoroscopy time: 3.4 seconds. Total dose area product (DAP) in uGy*m?, mGy*cm? (or similar ): 0.4504 Images obtained: 3.
[2023-05-15] MEDS: ONDANSETRON 4 MG/2 ML VIAL IVP PRN (18:20)
[2023-05-15] MEDS: SODIUM CHLORIDE 0.9% 1,000 ML IV SCH (19:22)
[2023-05-16 02:06] VITALS: RESP 16
[2023-05-16] MEDS: SODIUM CHLORIDE 0.9% 1,000 ML IV SCH (05:58)
[2023-05-16] MEDS: ONDANSETRON 4 MG/2 ML VIAL IVP PRN (08:05)
[2023-05-16 08:58] VITALS: BP 130/75; PULSE 91; TEMP 97.8
--- NOTE | 2023-05-16 10:27 | P.DS ---
Providers Date of admission: 05/15/23 Attending physician: Nazario Waddell Primary care physician: [facility] Course: The patient presented on the day of admission as per their operative note. She had disc herniation at L2-3 with significant left lower extremity radiculopathy. She had continued symptoms and was having some weakness. She underwent surgery as per her operative note for laminectomy decompression with discectomy. She feels her legs are doing well. Physical Exam The incision site is clean dry and intact. There is no erythema no drainage. There is no purulence no evidence of infection. Abdomen soft and nontender. Chest has good excursion with deep inspiration and expiration. The patient has active and passive range of motion intact at the upper and lower extremities. There is no acute change in neurologic status. She has sustained dorsal flexion and EHL flexion-extension intact. Hospital Course Postoperative day #1 status post laminectomy decompression with discectomy L2-3 for disc herniation with lower extremity radiculopathy. Patient is making progress and doing well. The patient has been making good progress postoperatively. They have completed the prophylactic antibiotics without any signs or symptoms of infection. The patient has been able to advance their diet, and is tolerating diet adequately. The pain was initially controlled with IV medications and is now controlled appropriately with oral medications. The patient has been able to increase their mobilization. The patient has progressed appropriately. I think they are in good stable condition for discharge today. They will be sent home with appropriate prescriptions. I answered their questions to the best of my ability in a language that they can understand and they are agreeable with the plan. They will follow up as directed in approximately 2 weeks or sooner if she is having problems. Patient Condition at Discharge: Good Plan - Discharge Summary Discharge Rx Participant: No New Discharge Prescriptions: New HYDROcodone/APAP 5-325MG [[place] 5-325] 1 tab PO Q6HR PRN 3 Days #28 tab PRN Reason: Pain No Action Omeprazole [PriLOSEC] 20 mg PO DAILY ALPRAZolam [Alprazolam] 0.25 mg PO DAILY PRN PRN Reason: Anxiety Hyoscyamine Sulfate [Levsin] 0.125 mg PO Q3-4H PRN PRN Reason: stomach issues hydroCHLOROthiazide 25 mg PO DAILY Ibuprofen [Motrin Ib] 600 mg PO DIRECTED PRN PRN Reason: Pain Cyclobenzaprine [Flexeril] 10 mg PO TID Ondansetron [Zofran] 4 mg PO Q12HR PRN PRN Reason: Nausea HYDROcodone/APAP 7.5-325MG [[place] 7.5-325] 1 tab PO TID PRN PRN Reason: Pain amLODIPine BESYLATE 5 mg PO QAM Discharge Medication List Omeprazole [PriLOSEC] 20 mg PO DAILY 02/10/14 [History] ALPRAZolam [Alprazolam] 0.25 mg PO DAILY PRN 11/09/16 [History] Hyoscyamine Sulfate [Levsin] 0.125 mg PO Q3-4H PRN 11/09/16 [History] amLODIPine BESYLATE 5 mg PO QAM 08/30/21 [History] Ibuprofen [Motrin Ib] 600 mg PO DIRECTED PRN 03/22/23 [History] hydroCHLOROthiazide 25 mg PO DAILY 03/22/23 [History] Cyclobenzaprine [Flexeril] 10 mg PO TID 05/10/23 [History] HYDROcodone/APAP 7.5-325MG [[place] 7.5-325] 1 tab PO TID PRN 05/10/23 [History] Ondansetron [Zofran] 4 mg PO Q12HR PRN 05/10/23 [History] HYDROcodone/APAP 5-325MG [[place] 5-325] 1 tab PO Q6HR PRN 3 Days #28 tab 05/16/23 [Rx] Follow up Appointment(s)/Referral(s): Nazario Waddell DO [Doctor of Osteopathic Medicine] - 2 Weeks (As scheduled) Activity/Diet/Wound Care/Special Instructions: Keep site clean. May shower with waterproof Tegaderm intact. Do not soak in a tub. After 72 hours postoperatively, patient May remove dressing and then may shower with area uncovered. Leave glue intact and allow it to fray off on its own. May ambulate as tolerated. Avoid heavy or rigorous activity. No repetitive bending twisting or lifting. No overhead work. Discharge Disposition: HOME SELF-CARE
== END 2023-05-16 12:13 | disposition home or self-care (01) ==
LOC: OR 11:22 → 4SSUR 16:25 → OR 05-16 12:13
PROVIDERS: ATTEND Orthopaedic Surgery Orthopaedic Surgery of the Spine
DX: M51.16 Intervertebral disc disorders with radiculopathy, lumbar region (principal); M43.16 Spondylolisthesis, lumbar region; K21.9 Gastro-esophageal reflux disease without esophagitis; I10 Essential (primary) hypertension; I34.1 Nonrheumatic mitral (valve) prolapse
CPT/HCPCS: 97161; 86900; 86901; 80048; 85025; 85610; 85730; 86850; 81001; 72100; 63030; J1030; J0690 ×3; J2405 ×2; J1885; J1170

== ENCOUNTER → 2023-06-13 | Outpatient (CLI) | payer MEDICARE ==
--- NOTE | 2023-06-17 01:41 | MM ---
Reason for Exam: Screening (asymptomatic). Last mammogram was performed 1 year(s) and 4 month(s) ago. Patient History: Menarche at age 11. First Full-Term at age 26. Postmenopausal. Maternal aunt had breast cancer, age 80. Maternal aunt had breast cancer, age 60. Sister had breast cancer, age 52. Risk Values: Jyothi 5 year model risk: 3.4%. NCI Lifetime model risk: 10.7%. Prior Study Comparison: 04/17/2019 Bilateral Screening Mammogram, [facility]. 01/05/2021 Bilateral Screening Mammogram, [facility]. 02/22/2022 Bilateral MG 3D screening mammo w/cad, [facility]. Tissue Density: The breast tissue is heterogeneously dense. This may lower the sensitivity of mammography. Findings: Analyzed By CAD. There is no suspicious group of microcalcifications or new suspicious mass in either breast. Overall Assessment: Negative, BI-RAD 1 Management: Screening Mammogram of both breasts in 1 year. See note below in regards to patient's increased five-year Jyothi score. Patient should continue monthly self-breast exams. A clinical breast exam by your physician is recommended on an annual basis. This exam should not preclude additional follow-up of suspicious palpable abnormalities. Note on Jyothi scores and lifetime risk: 1. A Jyothi score greater than 3% is considered moderate risk. If this is the case, consider specialist referral to assess eligibility for a risk reducing agent. 2. If overall lifetime risk for the development of breast cancer is 20% or higher, the patient may qualify for future screening with alternating mammogram and breast MRI. Electronically signed and approved by: Ritchie Chavez M.D. Radiologist
== END | disposition home or self-care (01) ==
LOC: RADMAMWWP 14:53
PROVIDERS: ATTEND Obstetrics & Gynecology
DX: Z12.31 Encounter for screening mammogram for malignant neoplasm of breast (principal); Z78.0 Asymptomatic menopausal state; Z80.3 Family history of malignant neoplasm of breast
CPT/HCPCS: 77063; 77067

== ENCOUNTER 2023-08-02 09:27 | Day surgery (SDC) | payer MEDICARE ==
[2023-08-02] MEDS ORDERED: LACTATED RINGERS 1,000 ML IV SCH (09:44)
[2023-08-02 10:12] VITALS: RESP 16; TEMP 97
[2023-08-02] MEDS ORDERED: PROPOFOL 10 MG/ML 20 ML VIAL IV ONE (10:36)
[2023-08-02] MEDS ORDERED: LIDOCAINE 1% INJ 10MG/ML (20 ML MDV) ONE (10:36)
--- NOTE | 2023-08-02 10:50 | P.PCN ---
Date of Procedure: 08/02/23 Procedure(s) Performed: BRIEF HISTORY: Patient is a 68-year-old, pleasant, white female scheduled for an upper endoscopy as a part of follow-up of duodenal polyp polyp noted at the previous upper endoscopy in August 2021. Biopsy revealed adenoma. PROCEDURE PERFORMED: Esophagogastroduodenoscopy with biopsy and snare polypectomy. PREOPERATIVE DIAGNOSIS: Follow-up duodenal adenoma. IV sedation per anesthesia. PROCEDURE: After informed consent was obtained, the patient was brought into the endoscopy unit. IV sedation was administered by Anesthesia under continuous monitoring. Initially the Olympus GIF-140 video endoscope was inserted into the mouth. Esophagus intubated without any difficulty. It was gradually advanced into the stomach and duodenum and carefully examined. The bulb of the duodenum appeared normal. In the second part of the duodenum there was a 5 mm residual polyp identified which was removed by snare polypectomy followed by biopsies of the base of the polyp. Complete polypectomy accomplished. The scope at this time was withdrawn to the stomach, adequately insufflated with air, and upon careful examination, mucosa of the antrum, body, cardia and the fundus appeared normal. The scope was then withdrawn into the esophagus. Small hiatal hernia noted. The GE junction was located at 39 cm from the incisors. The esophagus appeared normal. There were no erosions or ulcerations seen and the patient tolerated the procedure well. IMPRESSION: 1. 5 mm residual duodenal polyp in the second part of the duodenum status post snare polypectomy followed by multiple biopsies. 2. Small hiatal hernia. RECOMMENDATIONS: The findings of this examination were discussed with the patient has a family. She was advised to follow with the biopsy results and will plan a repeat upper endoscopy in 1 year..
[2023-08-02 11:26] VITALS: BP 144/70; PULSE 77
== END 2023-08-02 11:37 | disposition home or self-care (01) ==
LOC: ORWHC2ENDO 09:27
PROVIDERS: ATTEND Internal Medicine Gastroenterology
DX: K31.7 Polyp of stomach and duodenum (principal); K44.9 Diaphragmatic hernia without obstruction or gangrene; I10 Essential (primary) hypertension; K21.9 Gastro-esophageal reflux disease without esophagitis; Z88.5 Allergy status to narcotic agent; Z79.899 Other long term (current) drug therapy
CPT/HCPCS: 88305; 43239; 43251; J2001; J2704

== ENCOUNTER → 2023-09-09 | Outpatient (CLI) | payer MEDICARE ==
[2023-09-09 15:56] LABS: Basophils # (A) 0.11 X 10*3/uL (0.00-0.10); Basophils % (A) 1.9 %; Eosinophils # (A) 0.29 X 10*3/uL (0.04-0.35); Eosinophils % (A) 4.9 %; HCT 51.9 % (37.2-46.3); Lymphocytes # (A) 2.31 X 10*3/uL (0.90-5.00); Lymphocytes % (A) 38.9 %; MCH 29.3 pg (27.0-32.0); MCHC 32.8 g/dL (32.0-37.0); MCV 89.5 FL (80.0-97.0); Mean Platelet Volume 9.9 FL (9.5-12.2); Monocytes % (A) 6.7 %; NRBC Per 100 WBC 0 X 10*3/uL (0.00-0.01); Neutrophils # (A) 2.82 X 10*3/uL (1.80-7.70); Neutrophils % (A) 47.4 %; Platelet Count 375 X 10*3/uL (140-440); RDW 13.1 % (11.5-14.5); WBC 5.94 X 10*3/uL (4.50-10.00)
[2023-09-09 16:28] LABS: ALT 32 U/L (8-44); AST 36 U/L (13-35); Albumin 4.6 g/dL (3.8-4.9); Albumin/Globulin Ratio 1.92 Ratio (1.60-3.17); Alkaline Phosphatase 121 U/L (41-126); BUN/Creat Ratio 16.91 Ratio (12.00-20.00); Blood Urea Nitrogen 18.6 mg/dL (9.0-27.0); Calcium 10.2 mg/dL (8.7-10.3); Carbon Dioxide 29.4 mmol/L (21.6-31.8); Chloride 101 mmol/L (96-109); Globulin 2.4 g/dL (1.6-3.3); Glucose 105 mg/dL (70-110); LDL Cholesterol,Calculated 139.6 mg/dL (0.0-131.0); Potassium 4.5 mmol/L (3.5-5.5); Sodium 141 mmol/L (135-145); Total Bilirubin 0.6 mg/dL (0.3-1.2)
== END | disposition home or self-care (01) ==
LOC: LABWHC1 09:15
PROVIDERS: ATTEND Family Medicine
DX: Z00.01 Encounter for general adult medical examination with abnormal findings (principal)
CPT/HCPCS: 36415; 80053; 80061; 85025

== ENCOUNTER → 2024-02-26 | Outpatient (CLI) | payer MEDICARE ==
[2024-02-26 10:17] VITALS: BP 146/83; PULSE 73; RESP 17; TEMP 98.1
--- NOTE | 2024-02-26 13:22 | P.HPOB ---
History of Present Illness H&P Date: 02/26/24 Chief Complaint: Patient is here for her routine gynecologic exam. This is a 68-year-old with an LMP of 1998. The patient is here to establish with this office. Previously saw Dr. Ayala for her gynecologic care. It has been about 1 year since her last pelvic exam. Per her records from Dr. Ayala's office, her last Pap smear was on 12/22/2020 and was negative. She states she has had regular cervical screening and no history of cervical neoplasia. She states that Dr. Ayala told her that if her next Pap smear was negative she can discontinue Pap smears. The records she has brought with her only contained her last 3 years of care with Dr. Ayala. She is without gynecologic complaints and denies any postmenopausal bleeding. She is status post endometrial ablation in 1998. She states she went through the menopausal change about 2003. She did use vaginal estrogen cream briefly, but took no other HRT. Review of Systems The patient's weight has been stable over the last year. She denies respiratory, cardiac, or G.I. problems. Past Medical History Past Medical History: GERD/Reflux, Hypertension, Mitral Valve Prolapse (MVP) Additional Past Medical History / Comment(s): intermittent abd. spasms.,hx. of herniated disc., Covid 08/2021, hx of polyps in duodenum. Intermittent PVCs. Osteopenia. PAST [employer] HISTORY: She has no history of STDs. History of Any Multi-Drug Resistant Organisms: None Reported Past Surgical History: Section, Cholecystectomy, Tonsillectomy, Uterine Ablation Additional Past Surgical History / Comment(s): HX LOW BACK PAIN-PAIN CLINIC INJECTIONS WITH LEFT HIP/LEG PAIN. varicose vein stripping, colonoscopy 2021(next after 10yr), egd - pre cancerous polyp removed 2021, laminectomy/discectomy L2-3 05/18. Past Anesthesia/Blood Transfusion Reactions: Postoperative Nausea & Vomiting (PONV) Additional Past Anesthesia/Blood Transfusion Reaction / Comment(s): States is sensitive to anesthesia. Past Psychological History: No Psychological Hx Reported Additional Psychological History / Comment(s): . Smoking Status: Never smoker Past Alcohol Use History: Occasional (About 5 drinks per week.) Additional Past Alcohol Use History / Comment(s): beer Past Drug Use History: None Reported Additional Drug Use History / Comment(s): cbd gummies for sleep, pt aware not to use 24 hrs before procedure. Additional History: She has been since 1980. 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. - Past Family History Mother Family Medical History: Dementia, Hyperlipidemia, Myocardial Infarction (MT) Additional Family Medical History / Comment(s): Had an MT in her 90s. 2 maternal aunts had breast cancer. Sister(s) Family Medical History: Cancer Additional Family Medical History / Comment(s): breast cancer. The patient believes her sister had cancer genetic testing and is unaware of any positive results. Father Family Medical History: Cancer, Congestive Heart Failure (CHF) Additional Family Medical History / Comment(s): Prostate cancer. . Brother(s) Family Medical History: Cancer Medications and Allergies Home Medications Medication Instructions Recorded Confirmed Type Omeprazole [PriLOSEC] 20 mg PO DAILY 02/10/14 02/26/24 History ALPRAZolam [Alprazolam] 0.25 mg PO DAILY PRN 11/09/16 02/26/24 History Hyoscyamine Sulfate [Levsin] 0.125 mg PO Q3-4H PRN 11/09/16 02/26/24 History amLODIPine BESYLATE 5 mg PO QAM 08/30/21 02/26/24 History Ibuprofen [Motrin Ib] 400 mg PO DIRECTED PRN 03/22/23 02/26/24 History hydroCHLOROthiazide 25 mg PO DAILY 03/22/23 02/26/24 History Cyclobenzaprine [Flexeril] 10 mg PO TID PRN 05/10/23 02/26/24 History HYDROcodone/APAP 7.5-325MG [[place] 1 tab PO TID PRN 05/10/23 02/26/24 History 7.5-325] Ondansetron [Zofran] 4 mg PO Q12HR PRN 05/10/23 02/26/24 History Magnesium 1 tab PO HS PRN 08/01/23 02/26/24 History Metoprolol Tartrate [Lopressor] 12.5 mg PO DAILY 02/26/24 02/26/24 History Allergies Allergy/AdvReac Type Severity Reaction Status Date / Time hydromorphone [From Dilaudid] AdvReac Nausea & Verified 02/26/24 10:07 Vomiting Exam Vital Signs Temp Pulse Resp BP Pulse Ox 02/26/24 10:11 98.1 F 73 17 146/83 98 Intake and Output 02/25/24 02/26/24 02/26/24 22:59 06:59 14:59 Other: Weight 57.606 kg Height 5 feet 5 inches, weight 127 pounds, BMI 21.1 This is a well-developed well-nourished white female who is alert and oriented times 3 in no acute distress. HEENT: Within normal limits. NECK: Supple without mass or thyromegaly. CHEST AND LUNGS: Clear to auscultation. HEART: Regular rate and rhythm. BREASTS: Are without mass or discharge. AXILLARY EXAM: Negative for adenopathy. BACK: Negative for CVA tenderness. ABDOMEN: Soft, nontender, without palpable masses. PELVIC EXAM: Normal external genitalia with mild atrophy. Cervix and vagina appear normal with moderate atrophy. There is no unusual discharge. There is no evidence of prolapse. The uterus is midposition, nongravid size and nontender. There are no palpable adnexal masses or tenderness. RECTAL EXAM: Rectovaginal exam is negative for mass or tenderness and is negative for occult blood. EXTREMITIES: Nontender. IMPRESSION: 1. 68-year-old menopausal female with normal gynecologic exam. 2. History of osteopenia. PLAN: 1. Pap smear was performed. Limited records from Dr. Ayala's office were reviewed. These were only for the last 3 years. Her last Pap smear with Dr. Ayala was negative on 12/22/2020. She was told she can discontinue Pap smears if the next Pap smear is negative. She has no history of cervical neoplasia and, per the patient, she has been regularly screened over the years. If today's Pap smear is negative, we will discontinue Pap smears. I have stressed the importance of continuing regular pelvic exams. 2. Self breast awareness was discussed with the patient. We have also discussed symptoms associated with inflammatory breast cancer. 3. Screening mammogram will be due in May. The order slip was given to the patient for this. 4. Osteoporosis prevention was discussed. I have stressed the importance of adequate calcium, vitamin D and regular exercise. Recommended amounts of calcium and vitamin D were also discussed. Her last bone density test was done on 11/26/2022. Will plan on repeating it again in 1 year. 5. PHQ-2 questionaire was given and she scores 0. This is a negative screen for depression. 6. She was advised to return in one year for her annual well woman exam.
== END ==
LOC: WWCWWP 09:47
PROVIDERS: ATTEND Obstetrics & Gynecology
DX: Z01.419 Encounter for gynecological examination (general) (routine) without abnormal findings (principal); M85.80 Other specified disorders of bone density and structure, unspecified site; Z78.0 Asymptomatic menopausal state; Z80.3 Family history of malignant neoplasm of breast; Z88.5 Allergy status to narcotic agent

== ENCOUNTER → 2024-06-15 | Outpatient (CLI) | payer MEDICARE ==
--- NOTE | 2024-06-16 09:27 | MM ---
Reason for Exam: Screening (asymptomatic). Last screening mammogram was performed 12 month(s) ago. Patient History: Menarche at age 11. First Full-Term at age 26. Postmenopausal. Maternal aunt had breast cancer, age 80. Maternal aunt had breast cancer, age 60. Sister had breast cancer, age 52. Risk Values: Jyothi 5 year model risk: 3.4%. NCI Lifetime model risk: 10.2%. Prior Study Comparison: 01/05/2021 Bilateral Screening Mammogram, [facility]. 02/22/2022 Bilateral MG 3D screening mammo w/cad, [facility]. 06/13/2023 Bilateral MG 3D screening mammo w/cad, [facility]. Tissue Density: The breasts are heterogeneously dense, which may obscure small masses. Findings: Analyzed By CAD. There is no suspicious group of microcalcifications or new suspicious mass in either breast. Overall Assessment: Benign, BI-RAD 2 Management: Screening Mammogram of both breasts in 1 year. . Patient should continue monthly self-breast exams. A clinical breast exam by your physician is recommended on an annual basis. This exam should not preclude additional follow-up of suspicious palpable abnormalities. Note on Jyothi scores and lifetime risk: 1. A Jyothi score greater than 3% is considered moderate risk. If this is the case, consider specialist referral to assess eligibility for a risk reducing agent. 2. If overall lifetime risk for the development of breast cancer is 20% or higher, the patient may qualify for future screening with alternating mammogram and breast MRI. [facility], , 06/16/2024 9:24 AM. Electronically signed and approved by: James Rivera M.D. Radiologis
== END | disposition home or self-care (01) ==
LOC: RADMAMWWP 08:02
PROVIDERS: ATTEND Obstetrics & Gynecology
CPT/HCPCS: 77063; 77067

== ENCOUNTER → 2024-09-01 | Outpatient (CLI) | payer MEDICARE ==
[2024-09-01 15:42] LABS: HCT 49.2 % (37.2-46.3); MCH 29.9 pg (27.0-32.0); MCHC 32.5 g/dL (32.0-37.0); Mean Platelet Volume 10.1 FL (9.5-12.2); NRBC Per 100 WBC 0 X 10*3/uL (0.00-0.01); Platelet Count 416 X 10*3/uL (140-440); RBC 5.35 X 10*6/uL (4.10-5.20); RDW 13.2 % (11.5-14.5); WBC 8.46 X 10*3/uL (4.50-10.00)
[2024-09-01 15:54] LABS: ALT 16 U/L (8-44); AST 26 U/L (13-35); Albumin 4.3 g/dL (3.8-4.9); Albumin/Globulin Ratio 1.72 Ratio (1.60-3.17); Alkaline Phosphatase 87 U/L (41-126); Blood Urea Nitrogen 23.1 mg/dL (9.0-27.0); Calcium 9.7 mg/dL (8.7-10.3); Carbon Dioxide 30.2 mmol/L (21.6-31.8); Chloride 100 mmol/L (96-109); Chol/HDL Ratio 2.84 Ratio; Globulin 2.5 g/dL (1.6-3.3); Glucose 115 mg/dL (70-110); LDL Cholesterol,Calculated 124.5 mg/dL (0.0-131.0); Sodium 140 mmol/L (135-145); Total Bilirubin 0.5 mg/dL (0.3-1.2); Total Protein 6.8 g/dL (6.2-8.2); VLDL Calculation 12.82 mg/dL (5.00-40.00)
== END | disposition home or self-care (01) ==
LOC: LABWHC1 07:44
PROVIDERS: ATTEND Internal Medicine Interventional Cardiology
DX: Z00.01 Encounter for general adult medical examination with abnormal findings (principal); E78.2 Mixed hyperlipidemia; E66.3 Overweight; R53.83 Other fatigue
CPT/HCPCS: 36415; 80053; 80061; 85027

== ENCOUNTER → 2024-11-02 | Outpatient (CLI) | payer MEDICARE ==
[2024-11-02 15:21] LABS: ALT 26 U/L (8-44); AST 33 U/L (13-35); LDL Cholesterol,Calculated 59.5 mg/dL (0.0-131.0)
== END | disposition home or self-care (01) ==
LOC: LABWHC1 08:30
PROVIDERS: ATTEND Internal Medicine Interventional Cardiology
DX: E78.2 Mixed hyperlipidemia (principal)
CPT/HCPCS: 36415; 80061; 84450; 84460

== ENCOUNTER → 2024-11-27 | Outpatient (CLI) | payer MEDICARE ==
--- NOTE | 2024-11-27 09:55 | BD ---
EXAMINATION TYPE: Axial Bone Density DATE OF EXAM: 11/27/2024 CLINICAL HISTORY: 69 years old Female. ICD-10 CODE: M89.9 DISORDER OF BONE, UNSPECIFIED , Additional History: Height: 5 ft 4 1/2 in Weight: 128 FRAX RISK QUESTIONS: Alcohol (3 or more units per day): no Family History (Parent hip fracture): yes Glucocorticoids (More than 3mos): no (Ex: prednisone, prednisolone, methylprednisolone, dexamethasone, and hydrocortisone). History of Fracture in Adulthood: yes Secondary Osteoporosis: 1. Type 1 Diabetes: no 2. Hyperthyroidism: no 3. Menopause before 45: no 4. Malnutrition: no 5. Chronic liver disease: no Rheumatoid Arthritis: no Current Tobacco Use: no RISK FACTORS HISTORY OF: Surgery to Spine/Hip(right/left)/Wrist (right/left): lumbar 2022 MEDICATIONS: Thyroid Medications: none Osteoporosis Medications: none EXAM MEASUREMENTS: Bone mineral densitometry was performed using the [employer] System. Bone mineral density as measured about the Lumbar spine is: ----- L1-L4(G/cm2): 1.039 T Score Values are as follows: ----- L1: -1.6 ----- L2: -1.2 ----- L3: -1.1 ----- L4: -1.0 ----- L1-L4: -1.2 Z Score Values are as follows: ----- L1: 0.3 ----- L2: 0.7 ----- L3: 0.8 ----- L4: 0.9 ----- L1-L4: 0.7 Bone mineral density has: decreased -4.2 % since study of: 2022 Bone mineral density about the R hip (g/cm2): 0.761 Bone mineral density about the L hip (g/cm2): 0.735 T Score values are as follows: -----R Neck: -2.0 -----L Neck: -2.2 -----R Total: -2.3 -----L Total: -2.4 Z Score values are as follows: -----R Neck: -0.1 -----L Neck: -0.3 -----R Total: -0.7 -----L Total: -0.7 Bone mineral density has: decreased -6.2 % since study of: 2022 FRAX%s: The graph provided illustrates a 19.3 % chance for a major osteoporotic fx and a 6.1 % chance for the hips probability for fx in 10 years time. IMPRESSION: Osteopenia (T Score between -2.5 and -1). There is slightly increased risk of fracture and the patient may be considered for treatment. Re-Screen 2-5 years. NOTE: T-SCORE=SD OF THE YOUNG ADULT MEAN. [facility], , 11/27/2024 9:53 AM
== END | disposition home or self-care (01) ==
LOC: RADBDWWP 09:10
PROVIDERS: ATTEND Family Medicine
DX: M85.89 Other specified disorders of bone density and structure, multiple sites (principal)
CPT/HCPCS: 77080